=== PATIENT | male | born 1980 | race Caucasian/White ===

== ENCOUNTER 2018-02-21 22:22 | Emergency (ER) | payer SELFPAY ==
[2018-02-21 22:32] VITALS: BP 142/92; PULSE 97; RESP 16; TEMP 36.5; O2SAT 100; BMI 25.0
[2018-02-21 22:35] VITALS: PULSE 97
--- NOTE | 2018-02-21 22:38 | ED.UPPEXIN ---
HPI - Extremity Injury (Upper) General Chief Complaint: Extremity Injury, Upper Stated Complaint: PAIN LEFT HAND S/P INJURY Time Seen by Provider: 02/21/18 22:37 Source: patient Mode of arrival: ambulatory Limitations: no limitations History of Present Illness HPI narrative: Patient is a 38-year-old male presenting with left hand pain. He had sutures this morning after he cut himself with a sushi nights. He works as a early morning babysitter. He says he had a digital block and once that wore off he has had increased pain. He said took some Tylenol he had a leftover Oto which she says he took as well he says neither 1 has helped. He feels burning pain. He had a tetanus shot this morning and x-ray. MD complaint: injury to: left and hand Related Data Previous Rx's Medication Instructions Recorded clindamycin HCl 300 mg PO Q6H #28 cap 03/03/17 hydrocodone-acetaminophen 0 tab PO Q6HP PRN #15 tab 03/03/17 Allergies Allergy/AdvReac Type Severity Reaction Status Date / Time Penicillins [PENICILLINS] Allergy Unknown Verified 02/21/18 22:32 Review of Systems Review of Systems GENERAL: Denies chills,fever HEENT: Denies throat pain RESPIRATORY: Denies dyspnea, cough, wheezing CARDIOVASCULAR: Denies chest pain, palpitations GASTROINTESTINAL: Denies nausea, vomiting MUSCULOSKELETAL: See HPI SKIN: See HPI NEUROLOGIC: Denies weakness, dizziness, headache, numbness 8 point review of systems is negative except for those stated above and HPI PFSH Medical History Healthy adult (Acute) Exam Initial Vital Signs Initial Vital Signs: Vital Signs Temperature 97.7 F 02/21/18 22:32 Pulse Rate 97 H 02/21/18 22:32 Respiratory Rate 16 02/21/18 22:32 Blood Pressure 142/92 H 02/21/18 22:32 Pulse Oximetry 100 02/21/18 22:32 GENERAL: Well-appearing, well-nourished and in no acute distress. CARDIOVASCULAR: peripheral pulses in tact, cap refill <2 sec RESPIRATORY: No respiratory distress, speaks in full sentences without difficulty EXTREMITIES: Normal range of motion, no clubbing or edema. Neurovascularly intact Left hand sutures in place between 3rd and 4th finger, limited range of motion due to pain neurovascularly intact NEUROLOGICAL: Cranial nerves II through XII grossly intact. Normal gait and speech. SKIN: No sutures in place no erythema no gross pus. Course Orders Ordered: Discontinued Medications Ketorolac Tromethamine (Toradol) 60 mg IM NOW ONE Stop: 02/21/18 22:55 Last Admin: 02/21/18 23:00 Dose: 60 mg Vital Signs - 8 hr 02/21/18 22:32 02/21/18 22:35 02/21/18 23:29 Temperature 97.7 F 99 F Pulse Rate 97 H 93 H Pulse Rate [Right] 97 H Respiratory Rate 16 18 Blood Pressure 142/92 H Blood Pressure [Right Arm] 131/71 Pulse Oximetry 100 96 MDM - Extremity Injury (Upper) MDM Narrative Medical decision making narrative: Patient is given shot of Toradol for pain. Discharge Plan Departure Patient Disposition: Home Clinical Impression: Hand pain, left Discharge Date/Time: 02/21/18 23:30 Interventions: ED Discharge Assessment Last Done: 02/21/18 23:30 Instructions: DI for Laceration Repair Activity Restrictions/Additional Instructions: *You have been diagnosed with left hand pain *What to do: Elevate, ice, avoid soaking, expect to have some pain it should start to improve in the next 1-2 days *Continue to take medications as directed Motrin 800 mg every 8 hr if needed for pain Tylenol 650 mg every 4-6 hours if needed for pain *Follow up with your primary care provider in 2-3 days *Return to ER if you should have redness, pus, swelling, numbness, tingling, weakness or any new, worsening or concerning symptoms Prescriptions: No Action clindamycin HCl 300 MG capsule 300 mg PO Q6H Qty: 28 RF: 0 hydrocodone-acetaminophen 5 MG/325 MG tablet PO Q6HP PRNQty: 15 RF: 0
[2018-02-21] MEDS: KETOROLAC 60 MG/2 ML VIAL IM (23:00)
[2018-02-21 23:29] VITALS: BP 131/71; PULSE 93; RESP 18; TEMP 37.2; O2SAT 96
== END 2018-02-21 23:30 | disposition home or self-care (01) ==
PROVIDERS: Emergency Provider Emergency Medicine
DX: M79.642 Pain in left hand (principal)
CPT/HCPCS: 96372; 99282; 99283; J1885

== ENCOUNTER 2021-02-01 15:44 | Emergency (ER) | payer OTHER, MEDICAID, SELFPAY ==
[2021-02-01 15:50] VITALS: BP 170/84; PULSE 81; RESP 24; TEMP 36.7; O2SAT 98
--- NOTE | 2021-02-01 15:57 | DI.RAD.S_ITS ---
PROCEDURE: XR RIBS RT MIN 3V W CXR 1V INDICATIONS: fall TECHNIQUE: 3 views of the right ribs were acquired, along with a single view chest. COMPARISON: None. FINDINGS: Surgical changes and devices: None. Bones and chest wall: No fractures or dislocations. No suspicious bony lesions. Overlying soft tissues appear unremarkable. Lungs and pleura: No pleural effusions or pneumothorax. Lungs appear clear. Mediastinum: Mediastinal contours appear normal. Heart size is enlarged. IMPRESSION: No acute pulmonary process. Dictated by: Nallely Elizalde M.D. on 02/01/2021 at 16:10 Approved by: Nallely Elizalde M.D. on 02/01/2021 at 16:11
[2021-02-01] MEDS: HYDROMORPHONE 1 MG INJ IM (16:54)
--- NOTE | 2021-02-01 18:17 | ED.GENADULT ---
HPI - General Adult General Chief complaint: Trauma Stated complaint: FELL OF A LADDER RT SIDE PAIN HARD TO BREATH Time Seen by Provider: 02/01/21 17:45 Source: patient Mode of arrival: Ambulatory History of Present Illness HPI narrative: Patient is a 41-year-old otherwise healthy male here for evaluation of right-sided rib and flank discomfort. He states that a couple days ago he was on a ladder fixing some gutters when he states the ladder fell. He landed on his right side. He did not hit his head. There was no loss of consciousness. He has no extremity injuries. Since that time he has had discomfort along his right ribs. He is able to breathe but when he sneezes or coughs or takes a very deep breath he has discomfort. No abdominal pain. Related Data Previous Rx's Medication Instructions Recorded clindamycin HCl 300 mg capsule 300 mg PO Q6H #28 cap 03/03/17 hydrocodone 5 mg-acetaminophen 325 0 tab PO Q6HP PRN #15 tab 03/03/17 mg tablet hydrocodone 5 mg-acetaminophen 325 1 tab PO Q4-6H PRN #10 tab 02/01/21 mg tablet Allergies Allergy/AdvReac Type Severity Reaction Status Date / Time Penicillins [PENICILLINS] Allergy Unknown Verified 02/21/18 22:32 Review of Systems Cardiovascular Cardiovascular: Reports system reviewed and no additional complaints, except as documented Respiratory Respiratory: Reports as per HPI and Reports system reviewed and no additional complaints, except as documented Gastrointestinal Gastrointestinal: Reports system reviewed and no additional complaints, except as documented Integumentary/Breasts Skin/Breast: Reports system reviewed and no additional complaints, except as documented Neurologic Neurologic: Reports system reviewed and no additional complaints, except as documented Hematologic/Lymphatic On Anticoagulants: No Patient History Medical History Healthy adult Social History Smoking Status: Current every day smoker Smoking Status: Current every day smoker Exam Initial Vital Signs Initial Vital Signs: Vital Signs Temperature 98.1 F 02/01/21 15:50 Pulse Rate 81 02/01/21 15:50 Respiratory Rate 24 02/01/21 15:50 Blood Pressure 170/84 H 02/01/21 15:50 Pulse Oximetry 98 02/01/21 15:50 HENMT Head: normal to inspection and normocephalic Chest Chest: No crepitus and No tenderness Resp Effort & Inspection: normal respiratory effort Auscultation: clear to auscultation bilaterally Cardio Rate: regular rate Rhythm: regular rhythm GI Palpation: soft, No guarding and No tender Back/Spine/Pelvis Other: Patient does have tenderness along the right posterior and axillary ribs. Skin Other: Patient has minor bruising right posterior lower ribs. He has not tender over this area. Extrem Other: His right and left upper lower extremity are unremarkable Psych Appearance: grossly normal and well kempt Course Orders Ordered: ED Orders 02/01/21 15:57 XR ribs RT min 3V w CXR1V Stat Discontinued Medications Hydromorphone HCl (Hydromorphone 1 Mg Inj) 1 mg IM NOW ONE Stop: 02/01/21 16:37 Last Admin: 02/01/21 16:54 Dose: 1 mg Documented by: KEO Vital Signs Vital signs: Vital Signs - 8 hr 02/01/21 18:30 Pulse Rate 70 Respiratory Rate 15 Blood Pressure 150/74 H Pulse Oximetry 99 Medical Decision Making Imaging Data Rib x-ray: Radiologist's Impression: [place] [address] XRay Report Signed Patient: Brian Last MR#: [id number] : 1980 Acct:[id number] Age/Sex: 41 / M Date of Service: 02/01/21 Loc: ED Accession Number: [id number] ?? Procedure: XR ribs RT min 3V w CXR1V Ordering Provider: Anabel Bae D.O. PROCEDURE:? XR RIBS RT MIN 3V W CXR 1V ? INDICATIONS:? fall ? TECHNIQUE:? 3 views of the right ribs were acquired, along with a single view chest.? ? COMPARISON:? None. ? FINDINGS:? ? Surgical changes and devices:? None.? ? Bones and chest wall:? No fractures or dislocations.? No suspicious bony lesions.? Overlying soft tissues appear unremarkable.? ? Lungs and pleura:? No pleural effusions or pneumothorax.? Lungs appear clear.? ? Mediastinum:? Mediastinal contours appear normal.? Heart size is enlarged. ? IMPRESSION:? No acute pulmonary process. ? ? Dictated by: Nallely Elizalde M.D. on 02/01/2021 at 16:10 ? ? Approved by: Nallely Elizalde M.D. on 02/01/2021 at 16:11?? [facility] Narrative Medical decision making narrative: Rib x-ray shows no signs of overt fractures. We did discuss the possibility of a fracture that is nondisplaced that is not seen on the x-ray. His underlying lung is unremarkable. He is not in any respiratory distress. He does have some bruising on his right flank but he is not tender over this area. He has no abdominal tenderness. I feel that we can hold on a CT scan of his abdomen for now. He reports no other injuries from the event. We did discuss return precautions follow-up instructions. He expressed understanding and agreement. Discharge Plan Departure Patient Disposition: Home Clinical Impression: Right flank pain Instructions: DI for Rib Contusion Activity Restrictions/Additional Instructions: There were no rib fractures noted on the x-rays. I do recommend you continue with the Tylenol and ibuprofen during the day. Make sure that you were taking occasional deep breaths like we discussed. Return to the emergency department for any fevers. Contact your primary doctor for follow-up. Prescriptions: New hydrocodone-acetaminophen 5-325 mg tablet 1 tab PO Q4-6H PRN (Reason: pain) Qty: 10 0RF No Action clindamycin HCl 300 MG capsule 300 mg PO Q6H Qty: 28 0RF hydrocodone-acetaminophen 5 MG/325 MG tablet 0 tab PO Q6HP PRNQty: 15 0RF
[2021-02-01 18:30] VITALS: BP 150/74; PULSE 70; RESP 15; O2SAT 99
== END 2021-02-01 18:36 | disposition home or self-care (01) ==
PROVIDERS: Emergency Provider Emergency Medicine
DX: R10.9 Unspecified abdominal pain (principal); F17.200 Nicotine dependence, unspecified, uncomplicated
CPT/HCPCS: 71101; 96372; 99283; J1170

== ENCOUNTER → 2023-05-01 09:29 | Outpatient (CLI) | payer OTHER, MEDICAID, SELFPAY ==
[2023-05-01 10:17] LABS: Add Manual Diff / Slide Review NO; Basophils Absolute Auto 0 /uL (0-100); Basophils Percent Auto 0.5 % (0-2); Eosinophils Absolute Auto 200 /uL (0-450); Eosinophils Percent Auto 2.8 % (2-4); Hematocrit 43.8 % (41-53); Hemoglobin 14.9 g/dL (13.5-17.5); Lymphocytes Absolute Auto 3200 /uL (1100-4500); Lymphocytes Percent Auto 42.1 % (25-40); Mean Corpuscular Hemoglobin 29.8 PG (26-34); Mean Corpuscular Volume 87.8 fL (80-100); Monocytes Absolute Auto 600 /uL (0-900); Monocytes Percent Auto 7.8 % (3-14); Neutrophils Absolute Auto 3600 /uL (1500-7000); Neutrophils Percent Auto 46.8 % (50-75); Platelet Count 245 X10^3/uL (150-400); Red Blood Cell Count 4.99 X10^6/uL (4.5-5.9); Red Cell Distribution Width 13.3 % (11.6-14.8); White Blood Cell Count 7.6 X10^3/uL (4.5-11.0)
[2023-05-01 11:01] LABS: Alanine Aminotransferase 34 IU/L (<50); Albumin 4.6 g/dL (3.5-5.0); Albumin Globulin Ratio 1.4 (1.0-2.8); Alkaline Phosphatase 81 U/L (38-126); Aspartate Aminotransferase 28 IU/L (17-59); BUN Creatinine Ratio 11.5 (6-22); Bilirubin Total 0.7 mg/dL (0.2-1.3); Blood Urea Nitrogen 10 mg/dL (9-20); Calcium 9.5 mg/dL (8.4-10.2); Carbon Dioxide 23 mmol/L (22-32); Chloride 107 mmol/L (98-107); Estimated Glomerular Filt Rate > 60 mL/min (>60); Globulin 3.2 g/dL (1.7-4.1); Glucose 99 mg/dL (70-100); HDL Cholesterol 37 mg/dL (40-60); HEMOLYSIS < 15 (0-50); Potassium 4.3 mmol/L (3.4-5.1); Sodium 139 mmol/L (137-145); Total Protein 7.8 g/dL (6.3-8.2); Triglycerides 372 mg/dL (35-150)
[2023-05-01 11:10] LABS: Cholesterol 351 mg/dL (140-199); LDL Cholesterol Calculated 240 mg/dL (<100); Rheumatoid Factor < 8.6 IU/mL (<12.0)
[2023-05-04 20:12] LABS: ANA Screen, IFA Negative (.)
== END ==
PROVIDERS: PCP Family Medicine; Referring Provider Family Medicine; Visit Provider Family Medicine
DX: L40.9 Psoriasis, unspecified (principal); M25.50 Pain in unspecified joint; R03.0 Elevated blood-pressure reading, without diagnosis of hypertension
CPT/HCPCS: 36415; 80053; 80061; 85025; 86038; 86430